=== PATIENT | male | born 1995 | race Two or more races ===

== ENCOUNTER 2017-11-03 00:20 | Emergency (ER) | payer SELFPAY ==
[2017-11-03 00:58] LABS: BASOPHIL % 0.9 % (0-2); PLATELET COUNT 266 x10^3mcL (130-400); RED CELL DISTRIBUTION WIDTH 12.4 % (11.5-14.5)
[2017-11-03 01:10] LABS: CALCIUM 8.7 mg/dL (8.5-10.1); CHLORIDE SERUM 104 mmol/L (98-107); CREATININE SERUM 1.1 mg/dL (0.7-1.3); GFR1 > 60 mL/min; GLUCOSE SERUM 76 mg/dL (74-106); POTASSIUM SERUM 3.3 mmol/L (3.5-5.1); SODIUM SERUM 141 mmol/L (136-145)
[2017-11-03 01:45] VITALS: BP 126/76
== END 2017-11-03 02:34 | disposition home or self-care (01) ==
LOC: ED 00:20
PROVIDERS: Emergency Medicine
DX: J98.01 Acute bronchospasm (principal)
CPT/HCPCS: 85378; J2930; J7620

== ENCOUNTER 2019-02-23 13:32 | Emergency (ER) | payer MEDICAID ==
[~2019-02-23] VITALS: Ht 172.7 cm; Wt 86.2 kg
[2019-02-23 13:39] VITALS: Ht 172.7 cm; Wt 86.2 kg
[2019-02-23 15:53] VITALS: BP 119/79
== END 2019-02-23 15:53 | disposition home or self-care (01) ==
LOC: ED 13:32
DX: F41.9 Anxiety disorder, unspecified (principal)